=== PATIENT | female | born 1995 | race Caucasian/White ===

== ENCOUNTER 2020-04-25 17:22 | Emergency (ER) | payer OTHER ==
[~2020-04-25] VITALS: Ht 162.6 cm; Wt 61.4 kg
[2020-04-25] MEDS ORDERED: ADDERALL XR15 MG PO (17:36)
[2020-04-25] MEDS ORDERED: ADDERALL10 MG PO (17:36)
[2020-04-25] MEDS ORDERED: ZOLOFT 25MG25 MG PO (17:37)
[2020-04-25] MEDS ORDERED: PAMELOR 25MG25 MG PO (17:37)
[2020-04-25 18:56] VITALS: BP 116/74; PULSE 72; TEMP 98.8
== END 2020-04-25 18:54 | disposition home or self-care (01) ==
LOC: COL.ER 17:22
DX: S06.0X1A Concussion with loss of consciousness of 30 minutes or less, initial encounter (principal); S01.511A Laceration without foreign body of lip, initial encounter; R40.2410 Glasgow coma scale score 13-15, unspecified time; F90.9 Attention-deficit hyperactivity disorder, unspecified type; F41.9 Anxiety disorder, unspecified; Z88.1 Allergy status to other antibiotic agents; W05.1XXA Fall from non-moving nonmotorized scooter, initial encounter; Y92.410 Unspecified street and highway as the place of occurrence of the external cause